=== PATIENT | male | born 1965 | race Caucasian/White ===

== ENCOUNTER 2018-04-15 13:11 | Inpatient (IN) | payer BC, OTHER ==
[2018-04-15] VITALS (20 sets, daily range): BP systolic 83–167; BP diastolic 16–92
[~2018-04-15] VITALS: Ht 195.6 cm; Wt 202.4 kg
[~2018-04-15 13:11] MED LIST: ANDROGEL5 GM TD; B12INJ IM; BACTRIM DS TAB1 EACH PO; VITAMIN D 5050000 I1
[2018-04-15 13:25] LABS: ABSOLUTE NEUTROPHILS 5.8 thou/uL (1.4-8.2); BASOPHILS 0.7 % (0.0-2.0); EOSINOPHILS 0.3 % (0.0-3.0); HEMATOCRIT 49.5 % (42.0-52.0); HEMOGLOBIN 16.8 gm/dL (14.0-18.0); LYMPHOCYTES 20.6 % (24.0-44.0); MCH 31.1 pg (26.0-34.0); MCHC 33.9 g/dL (28.0-37.0); MCV 91.7 fL (80.0-100.0); MONOCYTES 2.4 % (1.0-8.0); RDW 13.9 % (10.5-14.5); WBC 7.7 thou/uL (4.0-11.0)
--- NOTE | 2018-04-15 13:26 | EKG ---
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 : 1965 Requested By: Davey Mo Order Number: [id number] MD: Tyson Martini Measurements Intervals Delta Rate: 97 P: 45 OK: 176 QRS: -55 QRSD: 97 T: 49 QT: 370 QTc: 470 Interpretive Statements Sinus rhythm Probable left atrial enlargement Left anterior fascicular block Abnormal R-wave progression, late transition Borderline ST depression, lateral leads Compared to ECG 01/28/2014 08:30:20 Left anterior fascicular block now present ST (T wave) deviation now present Left-axis deviation no longer present Electronically Signed On 04-15-2018 13:26:38 AIRWAY CONTROLLER by Tyson Martini [email or web address] <ELECTRONICALLY SIGNED> By: Tyson Martini MD 04/15/18 1326 1313 1313 Tyson Martini MD /EPI
[2018-04-15 13:37] LABS: ANION GAP 13 mmol/L (7-16); BUN 13 mg/dL (7-18); CALCIUM 8.6 mg/dL (8.5-10.1); CHLORIDE 104 mmol/L (98-107); CO2 22 mmol/L (21-32); CREATININE 1.5 mg/dL (0.7-1.3); GLUCOSE 139 mg/dL (74-106); POTASSIUM 3.1 mmol/L (3.5-5.1); SODIUM 139 mmol/L (136-145)
[2018-04-15] MEDS ORDERED: KEFLEX250 MG PO (13:41)
[2018-04-15 13:46] LABS: TROPONIN-I <0.06 ng/mL (<0.06)
[2018-04-15] MEDS ORDERED: PRILOSEC 20 MG20 MG PO (13:58)
[2018-04-15 14:00] LABS: PLATELET COUNT 187 thou/uL (150-400)
[2018-04-15] MEDS ORDERED: DEPO-TESTO200 MG/1 M IM (14:02)
[2018-04-16] VITALS (28 sets, daily range): BP systolic 86–159; BP diastolic 43–98
--- NOTE | 2018-04-16 03:19 | NUR ---
[facility] 15. A&O X4. FC, LEILA. 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 C/O RIGHT SHOULDER AND NECK PAIN. LIDOCAINE CREAM APPLIED. SINUS RHYTHM ON MONITOR. DENIES CHEST PAIN. O2 SAT > 92% ON 2L PER NC. VOIDS PER URINAL. UP WITH STANDBY ASSIST. VITAL SIGNS AND ASSESSMENTS DOCUMENTED. WILL CONTINUE TO MONITOR.
[2018-04-16 05:59] LABS: HEMATOCRIT 47.7 % (42.0-52.0); HEMOGLOBIN 16.3 gm/dL (14.0-18.0); MCH 31.1 pg (26.0-34.0); MCHC 34.3 g/dL (28.0-37.0); MCV 90.8 fL (80.0-100.0); RBC 5.25 mil/uL (4.50-6.00); RDW 13.7 % (10.5-14.5); WBC 11.2 thou/uL (4.0-11.0)
[2018-04-16 06:08] LABS: CALCIUM 8.4 mg/dL (8.5-10.1); CREATININE 1.1 mg/dL (0.7-1.3)
[2018-04-16 06:11] LABS: POTASSIUM 4.5 mmol/L (3.5-5.1)
[2018-04-16] MEDS ORDERED: OMEPRAZOLE40 MG PO (07:29)
--- NOTE | 2018-04-16 13:15 | EKG ---
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: Carmelo MUNOZ : 1965 Requested By: Jayleen Juarez Order Number: [id number] MD: Tyson Martini Measurements Intervals [place] Rate: 79 P: 44 MN: 177 QRS: -31 QRSD: 101 T: 37 QT: 375 QTc: 430 Interpretive Statements Sinus rhythm Left axis deviation Compared to ECG 04/15/2018 13:13:48 Left-axis deviation now present Left anterior fascicular block no longer present ST (T wave) deviation no longer present Electronically Signed On 04-16-2018 13:15:31 AWARD MACHINE OPERATOR by Tyson Martini [email or web address] <ELECTRONICALLY SIGNED> By: Tyson Martini MD 04/16/18 1315 1227 1227 Tyson Martini MD /EPI
--- NOTE | 2018-04-16 14:20 | 2DMMODE ---
[facility] [place] [address] [place] [address] 2 D/M-MODE ECHOCARDIOGRAM Name: BRIDGERSHAWN Eugenio Room #: 238-P [facility] IN ..#: [id number] Admission: 04/15/18 Attend Phys: Rigo Carter MD Discharge: Date of : 67 Date of Service: 04/16/18 1420 Report #: [id number] THIS REPORT FOR: //name// APPROVED REPORT Study performed: 04/16/2018 12:57:38 EXAM: Comprehensive 2D, Doppler, and color-flow Echocardiogram Patient Location: ICU Room #: [facility] Status: routine BSA: 3.04 HR: 75 bpm BP: 117/72 mmHg Rhythm: NSR Other Information Study Quality: Fair Technically limited study due to morbid obesity. Indications Chest/back pain, hypotension. Echo Enhancing Agent Indication: Endocardial border delineation Agent(s) / Amount(s) Used: Optison 4 cc 2D Dimensions IVSd: 13.00 (7-11mm) LVOT Diam: 25.77 (18-24mm) LVDd: 59.00 mm PWd: 13.00 (7-11mm) Ascending Ao: 38.66 (22-36mm) LVDs: 45.47 (25-40mm) Aortic Root: 40.41 mm Volumes Left Atrial Volume (Systole) Single Plane 4CH: 34.44 mL Single Plane 2CH: 81.51 mL LA ESV Index: 20.00 mL/m2 Aortic Valve AoV Peak Jean Claude.: 1.73 m/s AO Peak Gr.: 12.01 mmHg LVOT Max P.45 mmHg LVOT Max V: 1.17 m/s LIS Vmax: 3.51 cm2 [facility] [place] [address] [place] [address] 2 D/M-MODE ECHOCARDIOGRAM Name: SHAWN SPARKS Room #: 238-[facility] IN [facility].#: [id number] Admission: 04/15/18 Attend Phys: Rigo Carter MD Discharge: Date of : 67 Date of Service: 04/16/18 1420 Report #: [id number] Mitral Valve E/A Ratio: 1.2 MV Decel. Time: 224.65 ms MV E Max Jean Claude.: 1.16 m/s MV A Jean Claude.: 0.96 m/s MV PHT: 65.15 ms IVRT: 72.66 ms Pulmonary Valve PV Peak Jean Claude.: 0.85 m/s PV Peak Gr.: 2.91 mmHg Tricuspid Valve RAP Estimate: 10.00 mmHg Left Ventricle The left ventricle is normal size. Mild concentric left ventricular hypertrophy. Left ventricular systolic function is normal. LVEF is 55%. Right Ventricle Right ventricle is not well visualized. Atria The left atrium size is normal. The right atrium size is normal. Aortic Valve The aortic valve is normal in structure. No aortic regurgitation is present. There is no aortic valvular stenosis. Mitral Valve The mitral valve is normal in structure. There is no mitral valve regurgitation noted. No evidence of mitral valve stenosis. Tricuspid Valve Tricuspid valve is not well visualized. Unable to assess PA pressure. Pulmonic Valve Pulmonic valve is not well visualized. Great Vessels Aortic root is mildly dilated at 4.0cm. IVC is dilated and collapses >50% with inspiration. [facility] [place] [address] [place] [address] 2 D/M-MODE ECHOCARDIOGRAM Name: BRIDGERSHAWN K Room #: 238-P ADM IN M.R.#: [id number] Admission: 04/15/18 Attend Phys: Rigo Carter MD Discharge: Date of : 67 Date of Service: 04/16/18 142 Report #: [id number] Pericardium There is no pericardial effusion. <Conclusion> The left ventricle is normal size. Mild concentric left ventricular hypertrophy. Left ventricular systolic function is normal. Right ventricle is not well visualized. The left atrium size is normal. The right atrium size is normal. The aortic valve is normal in structure. There is no mitral valve regurgitation noted. Tricuspid valve is not well visualized. <ELECTRONICALLY SIGNED> By: Jaiden Saravia MD 04/16/18 1420 142 1420 Jaiden Saravia MD /MARYBEL
--- NOTE | 2018-04-16 15:35 | NUR ---
PT A/O X 4. DENIES PAIN. VSS. DR MENDOZA ORDERED MST TRANSFER. CARDIOLOGY SAW PT, ORDERED EKG, ECHO, AND NUC MED STRESS TEST. TRANSFER ORDER CHANGED TO CCU. PT TRANSFERRED TO ROOM 214 WITH ALL BELONGINGS. REPORT CALLED TO NURSE PEREZ. PT'S AT BEDSIDE DURING TRANSFER. PT PROGRESSING TOWARD POC GOALS
--- NOTE | 2018-04-16 15:54 | NUR ---
PT TRANSFERRED INTO 214 - AMBULATED TO BR /S DIFFICULTY - TELEMONITOR APPLIED - ASSESSMENT COMPLETED AT CHARTED - VSS - DENIES PAIN - AT BEDSIDE - PT NOW LEAVING CCU TO COMPLETE PART ONE OF STRESS TEST
[2018-04-17 00:12] VITALS: BP 135/82
[2018-04-17 04:02] LABS: CALCIUM 8.5 mg/dL (8.5-10.1); POTASSIUM 4.4 mmol/L (3.5-5.1)
[2018-04-17 04:14] LABS: HEMATOCRIT 49.3 % (42.0-52.0); HEMOGLOBIN 16.5 gm/dL (14.0-18.0); MCH 30.9 pg (26.0-34.0); MCHC 33.4 g/dL (28.0-37.0); MCV 92.5 fL (80.0-100.0); RBC 5.33 mil/uL (4.50-6.00); RDW 13.8 % (10.5-14.5); WBC 6.5 thou/uL (4.0-11.0)
[2018-04-17 04:37] VITALS: BP 147/88
--- NOTE | 2018-04-17 06:09 | NUR ---
AT THE BEGINNING OF SHIFT PT C/O BACK VERA; REQUESTED LIDOCAINE; LIDOCAINE NOT ON MED ROOM; REQUESTED NEW ONE; ABLE TO REST DURING THE NIGHT; NPO AFTER MIDNIGHT. ASSESSMENT CHARGED. FOLLOW POC.
[2018-04-17 08:19] VITALS: BP 142/76
--- NOTE | 2018-04-17 10:21 | NUR ---
Received consult for pt with class III extreme obesity, BMI of 52.9. On heart healthy diet, admitted with dehydration and hypotension. Eating and in good spirits. Denied any need for education on wt loss, heart healthy diet however interrupted conversation and asked for home suggestions. Making some healthy food choices, but recommend closer watch of portion sizes. Pt also very inactive. Defer exercise recommendations to physician. Low nutrition risk
[2018-04-17] MEDS ORDERED: EPIPEN 2-P0.3 MG/0.3 IM (11:29)
[2018-04-17 12:10] VITALS: BP 142/76
--- NOTE | 2018-04-17 15:33 | NUR ---
AOX4, DENIES PAIN OR SOA. UP TO BATHROOM WITH STEADY, BALANCED GAIT. STRESS TEST PERFORMED THIS SHIFT. DENIES ANY FURTHER SYMPTOMS. PATIENT AND PROVIDED PRESCRIPTIONS, EDUCATION, & DISCHARGE INSTRUCTIONS. DISCHARGED HOME TO SELF CARE. PATIENT DENIES HAVING ANY FURTHER QUESTIONS OR CONCERNS PRIOR TO DISCHARGE.
== END 2018-04-17 15:06 | disposition home or self-care (01) | DRG 552 ==
LOC: ER 13:11 → ICU 15:40 → EROBS 15:40 → ICU 17:46 → 2N 04-16 15:30 → ENTRNSPT 04-17 14:45 → 2N 04-17 15:06
PROVIDERS: Emergency Medicine; Internal Medicine; ADMIT Hospitalist
DX: M47.895 Other spondylosis, thoracolumbar region (principal); N17.9 Acute kidney failure, unspecified; Z68.43 Body mass index [BMI] 50.0-59.9, adult; I95.9 Hypotension, unspecified; E66.01 Morbid (severe) obesity due to excess calories; R07.9 Chest pain, unspecified; G47.33 Obstructive sleep apnea (adult) (pediatric); D51.0 Vitamin B12 deficiency anemia due to intrinsic factor deficiency; Z90.49 Acquired absence of other specified parts of digestive tract; Z79.899 Other long term (current) drug therapy
CPT/HCPCS: 10078; 10081